=== PATIENT | male | born 1990 | race Caucasian/White ===

== ENCOUNTER 2018-04-13 10:48 | Emergency (ER) | payer OTHER ==
[~2018-04-13] VITALS: Ht 170.2 cm; Wt 79.4 kg
[~2018-04-13 10:48] MED LIST: AMOX500 PO; HYDACE10B PO; HYDACE5 PO; METR500 PO; PENVK500 PO; POLTRIOPSO OD; RXANTBENOT AU; TRAM50 PO
[2018-04-13] MEDS ORDERED: PENVK500 PO (11:23)
== END 2018-04-13 11:35 | disposition home or self-care (01) ==
LOC: ER 10:48
DX: K04.7 Periapical abscess without sinus (principal); F17.200 Nicotine dependence, unspecified, uncomplicated
CPT/HCPCS: 99282

== ENCOUNTER 2025-01-07 12:38 | Emergency (ER) | payer OTHER ==
[~2025-01-07] VITALS: Ht 170.2 cm; Wt 86.2 kg
[2025-01-07 12:42] VITALS: BP 132/96
[2025-01-07] MEDS ORDERED: Ketorolac Tromethamine 15mg Vial IM ONE (12:45)
[2025-01-07] MEDS ORDERED: HYDROmorphone HCl/Pf 1MG SYR IM ONE (15:25)
[2025-01-07] MEDS ORDERED: HYDR1TAB94 PO (16:18)
[2025-01-07] MEDS ORDERED: RX Prepack 6 Tabs Oxycodone 5mg UD ONE (16:20)
== END 2025-01-07 16:30 | disposition home or self-care (01) ==
LOC: ER 12:38
DX: S82.142A Displaced bicondylar fracture of left tibia, initial encounter for closed fracture (principal); Z88.0 Allergy status to penicillin; F17.210 Nicotine dependence, cigarettes, uncomplicated; Z59.89 Other problems related to housing and economic circumstances; V19.9XXA Pedal cyclist (driver) (passenger) injured in unspecified traffic accident, initial encounter
CPT/HCPCS: 73562-LT; 99283-25; A9270